=== PATIENT | female | born 1995 | race Caucasian/White ===

== ENCOUNTER 2017-08-20 17:46 | Emergency (ER) | payer BC ==
[~2017-08-20] VITALS: Ht 172.7 cm; Wt 69.8 kg
[2017-08-20 18:15] VITALS: TEMP 37.9; Ht 172.7 cm; Wt 69.8 kg
[2017-08-20] MEDS ORDERED: SODIUM CHLORIDE 0.9% 1000ML 1,000 ML IV STA (19:36)
--- NOTE | 2017-08-20 19:37 | EMERGENCY ROOM VISIT NOTE ---
History Report prepared by Cheryl: Arjun Herring Under the Supervision of: Dr. Mendoza Manriquez M.D. First contact with patient: 19:11 Chief Complaint: HYPOTENSION Stated Complaint: COUGH, TROUBLE BREATHING, LOW BP History of Present Illness The patient is a 22 year old female who presents to the Emergency Room with complaints of a resolved episode of hypotension that occurred prior to arrival. The patient states she was evaluated at [facility] for cold symptoms and told to come to the ED because she was severely hypotensive. She reports she was in the ED waiting room and lost consciousness. The patient notes she remembers sitting in the chair then she could not hear or see anything. She states she did not fall or hit her head. She states the next thing she remembers she had a wheelchair next to her. The patient reports she was experiencing chest tightness, shortness of breath, and a cough, but she attributed her symptoms to her history of asthma. She notes she is on Nortrel control. The patient denies blood in stool, blood in urine, recent surgeries, recent travel, and the chance of being . 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 A total of ten systems were reviewed and were otherwise negative. Past Medical & Surgical Medical Problems: (1) Asthma Family History Patient reports no known family medical history. Social History Smoking Status: Never Smoker Marital Status: single Occupation Status: [employer] student Current/Historical Medications Scheduled Albuterol Hfa (Ventolin Hfa), 2-4 PUFFS INH Q6H Prednisone (Prednisone), 50 MG PO DAILY Allergies Coded Allergies: No Known Allergies (Unverified , 08/20/17) Physical Exam Vital Signs Date Time Temp Pulse Resp B/P (MAP) Pulse Ox O2 Delivery O2 Flow Rate FiO2 08/20/17 22:38 89 18 106/67 97 08/20/17 20:35 68 20 106/65 98 Room Air 08/20/17 20:06 84 08/20/17 18:15 37.9 97 20 108/74 98 Room Air Physical Exam Physical Exam GENERAL: She is oriented to person, place, and time. She appears well- developed and well-nourished. She does not appear distressed. ____ HENT: Exam performed. Head: Normocephalic and atraumatic. Right Ear: External ear normal. No mastoid tenderness. Left Ear: External ear normal. No mastoid tenderness. Mouth/Throat: The oropharynx is clear and moist. No trismus in the jaw. No dental abscesses or uvula swelling. No oropharyngeal exudate or tonsillar abscesses. ____ EYES: Conjunctivae and EOM are normal. Pupils are equal, round, and reactive to light. Right eye exhibits no discharge. Left eye exhibits no discharge. No scleral icterus. ____ NECK: Normal range of motion. Neck supple. No JVD present. No spinous process tenderness present. No carotid bruit present. No rigidity. No tracheal deviation and normal range of motion present. No Brudzinski's sign and no Kernig 's sign noted. ____ CV: Normal rate, regular rhythm, normal heart sounds and intact distal pulses. There is no peripheral edema. Palpable radial pulses bue. ____ PULM/CHEST: Effort normal and breath sounds normal. No respiratory distress. No stridor. She has no wheezes. She has no rales. Chest Wall: She exhibits no tenderness. ____ ABD: The abdomen is soft. Bowel sounds are normal. She has no distension. No mass is present. There is no tenderness. There is no rebound, no guarding, no Jaimes's sign and no tenderness at McBurney's point. Rovsig negative MUSC/SKEL: Normal range of motion. There is no peripheral edema, tenderness or deformity. LYMPH: No cervical adenopathy. ____ NEURO: She is alert and oriented to person, place, and time. She has normal strength. No cranial nerve deficit or sensory deficit. Coordination and gait normal. GCS eye subscore is 4. GCS verbal subscore is 5. GCS motor subscore is 6. cerbellar tests wnl. ____ SKIN: Skin is warm and dry. She is not diaphoretic. ____ PSYCH: She has a normal mood and affect. Her behavior is normal. Judgment and thought content normal. ____ Medical Decision & Procedures ER Provider Diagnostic Interpretation: X-ray: Per my interpretation, radiologist review. CHEST 2 VIEWS ROUTINE HISTORY: 22 years-old Female cough syncope acute cough COMPARISON: None available TECHNIQUE: PA and lateral views of the chest FINDINGS: Cardiomediastinal and hilar silhouettes are within normal limits. No pneumothorax, pleural effusion, focal airspace consolidation or overt pulmonary edema. The bones of the chest appear grossly intact. IMPRESSION: No acute process. The above report was generated using voice recognition software. It may contain grammatical, syntax or spelling errors. Electronically signed by: Rick Perez M.D. 08/20/2017 8:27 PM Dictated Date/Time: 08/20/2017 8:26 PM Laboratory Results 08/20/17 19:50 Red Blood Count 4.39, Mean Corpuscular Volume 87.0, Mean Corpuscular Hemoglobin 29.6, Mean Corpuscular Hemoglobin Concent 34.0, Mean Platelet Volume 9.9, Neutrophils (%) (Auto) 84.2, Lymphocytes (%) (Auto) 5.1, Monocytes (%) (Auto) 10.1, Eosinophils (%) (Auto) 0.2, Basophils (%) (Auto) 0.2, Neutrophils # (Auto ) 7.96, Lymphocytes # (Auto) 0.48, Monocytes # (Auto) 0.96, Eosinophils # (Auto ) 0.02, Basophils # (Auto) 0.02 08/20/17 19:50 Test 08/20/17 00:00 08/20/17 19:50 08/20/17 19:56 Urine Color DK YELLOW Urine Appearance CLEAR (CLEAR) Urine pH 7.0 (4.5-7.5) Urine Specific Nice 1.022 (1.000-1.030) Urine Protein NEG (NEG) Urine Glucose (UA) NEG (NEG) Urine Ketones 1+ (NEG) Urine Occult Blood 1+ (NEG) Urine Nitrite NEG (NEG) Urine Bilirubin NEG (NEG) Urine Urobilinogen POS (NEG) Urine Leukocyte Esterase MODERATE (NEG) Urine WBC (Auto) 10-30 /hpf (0-5) Urine RBC (Auto) >30 /hpf (0-4) Urine Hyaline Casts (Auto) 10-30 /lpf (0-5) Urine Epithelial Cells (Auto) >30 /lpf (0-5) Urine Bacteria (Auto) 1+ (NEG) Urine Yeast (Auto) (NONE PRSENT) Urine Test NEG (NEG) White Blood Count 9.46 K/uL (4.8-10.8) Red Blood Count 4.39 M/uL (4.2-5.4) Hemoglobin 13.0 g/dL (12.0-16.0) Hematocrit 38.2 % (37-47) Mean Corpuscular Volume 87.0 fL (80-100) Mean Corpuscular Hemoglobin 29.6 pg (25-34) Mean Corpuscular Hemoglobin Concent 34.0 g/dl (32-36) Platelet Count 185 K/uL (130-400) Mean Platelet Volume 9.9 fL (7.4-10.4) Neutrophils (%) (Auto) 84.2 % Lymphocytes (%) (Auto) 5.1 % Monocytes (%) (Auto) 10.1 % Eosinophils (%) (Auto) 0.2 % Basophils (%) (Auto) 0.2 % Neutrophils # (Auto) 7.96 K/uL (1.4-6.5) Lymphocytes # (Auto) 0.48 K/uL (1.2-3.4) Monocytes # (Auto) 0.96 K/uL (0.11-0.59) Eosinophils # (Auto) 0.02 K/uL (0-0.5) Basophils # (Auto) 0.02 K/uL (0-0.2) RDW Standard Deviation 41.8 fL (36.4-46.3) RDW Coefficient of Variation 13.1 % (11.5-14.5) Immature Granulocyte % (Auto) 0.2 % Immature Granulocyte # (Auto) 0.02 K/uL (0.00-0.02) Anion Gap 7.0 mmol/L (3-11) Est Creatinine Clear Calc Drug Dose 117.5 ml/min Estimated GFR () 128.8 Estimated GFR (Non- 111.1 BUN/Creatinine Ratio 8.3 (10-20) Calcium Level 8.4 mg/dl (8.5-10.1) D-Dimer 370 ug/L FEU (0-500) Laboratory results reviewed by me Medications Administered Medications (Trade) Dose Ordered Sig/Kimani Route Start Time Stop Time Status Last Admin Dose Admin Sodium Chloride 1,000 ml @ 999 mls/hr Q1H1M STAT IV 08/20/17 19:36 08/20/17 20:36 DC 08/20/17 20:09 999 MLS/HR ECG Indication: SOB/dyspnea Rate (beats per minute): 103 Rhythm: sinus rhythm Findings: T-wave inversion (lead III), no acute ischemic change, no ectopy, other ([place], QRS, QTc are within normal limits, No ST depression or elevation) Change: Patient's electrocardiogram was interpreted by me. ED Course 1925: The patient was evaluated in room C09. A complete history and physical exam was performed. 1935: Ordered Sodium Chloride 1000 ml @ 999 mls/hr IV 2042: I reevaluated the patient. She notes her symptoms have been gone for a week. 2145: I reevaluated the patient. Vital signs are stable. Repeat physical exam is within normal limits. No respiratory distress. Chest x-ray is within normal limits. Labs are within normal limits. UA is contaminated. Patient states she has an inhaler at home to use. She will be discharged with steroids and follow up with her PCP. DISCHARGE - Plan of care discussed with patient and questions answered. The patient was given both verbal and printed discharge instructions. The patient verbalized understanding and ability to comply. The patient is to seek outpatient follow up as noted in the discharge instructions. The patient verbalized understanding and ability to comply. The patient is discharged in stable condition. The patient was instructed to return for worsening symptoms. Medical Decision Vital signs are stable. Repeat physical exam is within normal limits. No respiratory distress. Chest x-ray is within normal limits. Labs are within normal limits. UA is contaminated. Patient states she has an inhaler at home to use. She will be discharged with steroids and follow up with her PCP. DISCHARGE - Plan of care discussed with patient and questions answered. The patient was given both verbal and printed discharge instructions. The patient verbalized understanding and ability to comply. The patient is to seek outpatient follow up as noted in the discharge instructions. The patient verbalized understanding and ability to comply. The patient is discharged in stable condition. The patient was instructed to return for worsening symptoms. Impression Primary Impression: Dyspnea Additional Impression: Asthma Scribe Attestation The scribe's documentation has been prepared under my direction and personally reviewed by me in its entirety. I confirm that the note above accurately reflects all work, treatment, procedures, and medical decision making performed by me. The chart was completed utilizing [employer] voice recognition software. Grammatical errors, random word insertions, pronoun errors, and incomplete sentences are an occasional consequence of this system due to software limitations, ambient noise, and hardware issues. Any formal questions or concerns about the content, text, or information contained within the body of this dictation should be directly addressed to the physician for clarification. Departure Information Dispostion Home / Self-Care Prescriptions Prednisone (Prednisone) 50 Mg Tab 50 MG PO DAILY for 5 Days, #5 TAB Prov: Mendoza Manriquez M.D. 08/20/17 Referrals [facility] (PCP) Forms HOME CARE DOCUMENTATION FORM, IMPORTANT VISIT INFORMATION, WORK / SCHOOL INSTRUCTIONS Patient Instructions Asthma - [facility], ED Dyspnea Shortness of Breath, ED Near [facility], [facility] Problem Qualifiers Primary Impression: Dyspnea Dyspnea type: unspecified Qualified Codes: R06.00 - Dyspnea, unspecified Additional Impression: Asthma Asthma severity: mild Asthma persistence: unspecified Asthma complication type: unspecified Qualified Codes: J45.998 - Other asthma
[2017-08-20 20:06] LABS: BASO % 0.2 %; BASO ABS # 0.02 K/uL (0-0.2); EOS % 0.2 %; EOS ABS # 0.02 K/uL (0-0.5); HEMATOCRIT 38.2 % (37-47); IG# 0.02 K/uL (0.00-0.02); LYMPH % 5.1 %; LYMPH ABS # 0.48 K/uL (1.2-3.4); MEAN CORPUSCULAR HEMOGLOBIN 29.6 pg (25-34); MEAN PLATELET VOLUME 9.9 fL (7.4-10.4); MONO % 10.1 %; MONO ABS # 0.96 K/uL (0.11-0.59); NEUT % 84.2 %; NEUT ABS # 7.96 K/uL (1.4-6.5); PLATELET COUNT 185 K/uL (130-400); RED CELL DISTRIBUTION WIDTH CV 13.1 % (11.5-14.5); RED CELL DISTRIBUTION WIDTH SD 41.8 fL (36.4-46.3); WHITE BLOOD COUNT 9.46 K/uL (4.8-10.8)
[2017-08-20] MEDS ORDERED: VNTHFA/IN INH (20:21)
--- NOTE | 2017-08-20 20:28 | DIAGNOSTIC IMAGING REPORT ---
CHEST 2 VIEWS ROUTINE HISTORY: 22 years-old Female cough syncope acute cough COMPARISON: None available TECHNIQUE: PA and lateral views of the chest FINDINGS: Cardiomediastinal and hilar silhouettes are within normal limits. No pneumothorax, pleural effusion, focal airspace consolidation or overt pulmonary edema. The bones of the chest appear grossly intact. IMPRESSION: No acute process. The above report was generated using voice recognition software. It may contain grammatical, syntax or spelling errors. Electronically signed by: Rick Perez M.D. 08/20/2017 8:27 PM Dictated Date/Time: 08/20/2017 8:26 PM
[2017-08-20 20:39] LABS: CALCIUM 8.4 mg/dl (8.5-10.1); CREATININE 0.77 mg/dl (0.60-1.20); POTASSIUM 3.9 mmol/L (3.5-5.1)
[2017-08-20] MEDS ORDERED: PRED50TA PO (22:27)
[2017-08-20 22:38] VITALS: BP 106/67; PULSE 89; O2SAT 97
== END 2017-08-20 22:40 | disposition home or self-care (01) ==
LOC: C.EDB 17:48 → C.EDC 22:40
DX: R06.00 Dyspnea, unspecified (principal); J45.998 Other asthma; R55 Syncope and collapse; R07.89 Other chest pain; R05 Cough